=== PATIENT | male | born 2000 | race Caucasian/White ===

== ENCOUNTER 2022-06-05 22:19 | Emergency (ER) | payer OTHER ==
[~2022-06-05] VITALS: Ht 177.8 cm; Wt 104.0 kg
[2022-06-05 22:37] VITALS: BP 131/77
[2022-06-06] MEDS ORDERED: IBU600T PO (02:25)
== END 2022-06-06 03:12 | disposition home or self-care (01) ==
LOC: ER 22:19
DX: S96.912A Strain of unspecified muscle and tendon at ankle and foot level, left foot, initial encounter (principal); M79.10 Myalgia, unspecified site; W20.8XXA Other cause of strike by thrown, projected or falling object, initial encounter; Y93.89 Activity, other specified; Y92.89 Other specified places as the place of occurrence of the external cause; Y99.8 Other external cause status
CPT/HCPCS: 73630